=== PATIENT | female | born 1960 | race Caucasian/White ===

== ENCOUNTER 2025-04-10 09:19 | Emergency (ER) | payer MEDICARE ==
[~2025-04-10] VITALS: Ht 165.1 cm; Wt 79.5 kg
[2025-04-10 09:21] VITALS: BP 143/90; PULSE 78; RESP 18; TEMP 97.9; O2SAT 99
[2025-04-10] MEDS ORDERED: ROSU10TA72 PO (09:23)
== END 2025-04-10 11:23 | disposition home or self-care (01) ==
LOC: EMS 09:19
DX: S63.501A Unspecified sprain of right wrist, initial encounter (principal); E78.00 Pure hypercholesterolemia, unspecified; Z88.8 Allergy status to other drugs, medicaments and biological substances; Z79.899 Other long term (current) drug therapy; X50.0XXA Overexertion from strenuous movement or load, initial encounter; Y93.89 Activity, other specified; Y92.89 Other specified places as the place of occurrence of the external cause; Y99.8 Other external cause status
CPT/HCPCS: 99283